=== PATIENT | female | born 1970 | race Caucasian/White ===

== ENCOUNTER → 2022-09-09 23:24 | Outpatient (CLI) | payer BC, SELFPAY ==
[2022-09-09 18:07] LABS: Basophils # 0.1 K/mm3 (0-0.2); Basophils % 0.6 % (0.1-2.0); Eosinophils # 0.1 K/mm3 (0.0-0.4); Hematocrit 41.6 % (37.0-47.0); Hemoglobin 13.4 g/dL (12.2-16.2); Lymphocytes % 20.8 % (10-50); Mean Corpuscular HGB Conc 32.3 g/dL (31.8-35.4); Mean Corpuscular Hemoglobin 27.8 pg (27.0-31.2); Mean Corpuscular Volume 86.3 fl (81-99); Mean Platelet Volume 8.3 fl (7.4-10.4); Monocytes # 0.5 K/mm3 (0.1-1.0); Monocytes % 5.1 % (1.7-9.3); Neutrophils # 7.2 K/mm3 (1.8-7.8); Neutrophils % 72.6 % (37.0-80.0); Platelet Count 333 K/mm3 (142-424); Red Blood Count 4.83 M/mm3 (4.20-5.40); Red Cell Distribution Width 14.7 % (11.5-17.5); White Blood Count 9.9 K/mm3 (4.8-10.8)
[2022-09-09 19:14] LABS: Hemoglobin A1C 5.3 % (4.0-6.0)
[2022-09-09 19:15] LABS: Chloride 101 mmol/L (98-107); Potassium 3.7 mmoL/L (3.5-5.1); Sodium 140 mmol/L (136-145)
[2022-09-09 19:17] LABS: Alanine Aminotransferase 22 U/L (12-78); Alkaline Phosphatase 154 U/L (38-126); Aspartate Amino Transferase 25 U/L (14-36); Bilirubin,Total 0.6 mg/dl (0.2-1.3); Blood Urea Nitrogen 13 mg/dl (7-17); Estimated Glomerular Filt Rate 105 ml/min (>60); GFR (African American) 128 ML/MIN (>60)
[2022-09-09 19:18] LABS: Albumin/Globulin Ratio 1.4 (1.1-1.8); Anion Gap 11.7 mEq/L (5-15); Calcium 9.4 mg/dl (8.4-10.2); Carbon Dioxide 31 mmol/L (22.0-30.0); Globulin 3.7 g/dL (1.3-3.2); Glucose 93 mg/dl (74-100); Total Protein,Serum 8.7 g/dl (6.3-8.2)
[2022-09-09 19:55] LABS: Thyroid Stimulating Hormone 4.42 uIU/mL (0.465-4.68)
[2022-09-09 20:08] LABS: 25-OH Vitamin D, Total 34.2 ng/mL (30-100)
[2022-09-09 22:45] LABS: Vitamin B12 545 pg/mL (239-931)
[2022-09-11 12:54] LABS: FSH 90.4 mIU/mL (.); LH 35.3 mIU/mL (.)
[2022-09-14 02:35] LABS: Estrogen 51 pg/mL (.)
== END ==
PROVIDERS: PCP Nurse Practitioner; Visit Provider Nurse Practitioner
DX: E01.0 Iodine-deficiency related diffuse (endemic) goiter (principal); R59.0 Localized enlarged lymph nodes; R09.89 Other specified symptoms and signs involving the circulatory and respiratory systems
CPT/HCPCS: 80053; 82306; 82607; 82672; 83001; 83002; 83036; 84443; 85025

== ENCOUNTER → 2022-10-09 23:23 | Outpatient (CLI) | payer BC, SELFPAY ==
[2022-10-09 18:28] LABS: Free T4 (Free Thyroxine) 1.12 ng/dl (0.78-2.19)
== END ==
PROVIDERS: PCP Nurse Practitioner; Visit Provider Nurse Practitioner
DX: R22.0 Localized swelling, mass and lump, head (principal); R22.1 Localized swelling, mass and lump, neck
CPT/HCPCS: 84439; 84443

== ENCOUNTER 2023-12-30 13:36 | Outpatient (CLI) | payer BC, SELFPAY ==
[2023-12-30 18:31] LABS: Basophils % 0.5 % (0.1-2.0); Eosinophils # 0.1 K/mm3 (0.0-0.4); Eosinophils % 1.9 % (0.1-12.0); Hematocrit 36.4 % (37.0-47.0); Hemoglobin 12.2 g/dL (12.2-16.2); Lymphocytes # 1.6 K/mm3 (0.7-4.5); Lymphocytes % 25.7 % (10-50); Mean Corpuscular HGB Conc 33.5 g/dL (31.8-35.4); Mean Corpuscular Hemoglobin 28.7 pg (27.0-31.2); Mean Corpuscular Volume 85.6 fl (81-99); Mean Platelet Volume 8.9 fl (7.4-10.4); Monocytes # 0.3 K/mm3 (0.1-1.0); Monocytes % 4.7 % (1.7-9.3); Neutrophils # 4.2 K/mm3 (1.8-7.8); Neutrophils % 67.2 % (37.0-80.0); Platelet Count 280 K/mm3 (142-424); Red Blood Count 4.25 M/mm3 (4.20-5.40); Red Cell Distribution Width 15.4 % (11.5-17.5); White Blood Count 6.2 K/mm3 (4.8-10.8)
[2023-12-30 18:43] LABS: Alanine Aminotransferase 22 U/L (12-78); Albumin Level 4.1 g/dl (3.5-5.0); Albumin/Globulin Ratio 1.3 (1.1-1.8); Alkaline Phosphatase 129 U/L (38-126); Aspartate Amino Transferase 28 U/L (14-36); Bilirubin,Total 0.5 mg/dl (0.2-1.3); Blood Urea Nitrogen 11 mg/dl (7-17); Calcium 9.4 mg/dl (8.4-10.2); Carbon Dioxide 29 mmol/L (22.0-30.0); Chloride 106 mmol/L (98-107); Chol/HDL Ratio 3.5 (1-3.5); Cholesterol 190 mg/dl (140-200); Estimated Glomerular Filt Rate 105 ml/min (>60); GFR (African American) 127 ML/MIN (>60); Globulin 3.2 g/dL (1.3-3.2); Glucose 95 mg/dl (74-100); HDL Cholesterol 54 mg/dl (40-60); Magnesium 1.8 mg/dl (1.6-2.3); Phosphorous 4.3 mg/dl (2.5-4.5); Sodium 141 mmol/L (136-145); Total Protein,Serum 7.3 g/dl (6.3-8.2); Triglycerides 269 mg/dl (30-150); Uric Acid 3.2 mg/dl (2.5-6.2); VLDL Cholesterol 54 mg/dL (0-40)
[2023-12-30 18:53] LABS: 25-OH Vitamin D, Total 30.2 ng/mL (30-100)
[2023-12-30 18:58] LABS: C-Reactive Protein 8.4 mg/L (0-4); Direct LDL Cholesterol 100.18 mg/dL (100-129)
[2023-12-30 19:08] LABS: Erythrocyte Sedimentation Rate 42 mm/hr (0-30)
[2023-12-30 19:11] LABS: Thyroid Stimulating Hormone 2.46 uIU/mL (0.465-4.68)
[2023-12-30 19:24] LABS: Hemoglobin A1C 5.4 % (4.0-6.0)
[2023-12-30 19:30] LABS: Vitamin B12 407 pg/mL (239-931)
[2024-01-01 11:14] LABS: RA Latex Turbid. <10.0 IU/mL (<14.0)
[2024-01-01 13:15] LABS: Anti-Centromere B Antibodies <0.2 AI (0.0-0.9); Anti-DNA (DS) Ab Qn 1 IU/mL (0-9); Anti-Jo-1 <0.2 AI (0.0-0.9); Anti-Smith Antibody <0.2 AI (0.0-0.9); Antichromatin Antibodies <0.2 AI (0.0-0.9); Antiscleroderma-70 Antibodies <0.2 AI (0.0-0.9); RNP Antibodies <0.2 AI (0.0-0.9); Sjogren's Anti-SS-A <0.2 AI (0.0-0.9); Sjogren's Anti-SS-B <0.2 AI (0.0-0.9)
[2024-01-26 15:29] LABS: Antinuclear Antibodies, IFA Positive
== END 2023-12-30 23:59 | disposition home or self-care (01) ==
LOC: LAB.DROPOF 12-31 13:36
PROVIDERS: PCP Nurse Practitioner; Visit Provider Nurse Practitioner
DX: R60.0 Localized edema (principal); R06.02 Shortness of breath; R53.83 Other fatigue; R20.2 Paresthesia of skin
CPT/HCPCS: 80050; 80053; 80061; 82306; 82607; 83036; 83735; 84100; 84443; 84550; 85025; 85651; 86038; 86140; 86225; 86235; 86431